=== PATIENT | male | born 1965 | race Caucasian/White ===

== ENCOUNTER 2022-01-24 06:40 | Emergency (ER) | payer SELFPAY ==
[~2022-01-24] VITALS: Ht 177.8 cm; Wt 79.4 kg
[2022-01-24] MEDS ORDERED: ROSU10TA2 PO (07:04)
--- NOTE | 2022-01-24 08:25 | NUR ---
patient seen by MD. Patient discharged to home in stable condition. Written and verbal after care instructions given. Patient verbalizes understanding of instructions. Stressed follow up or return to ER for worsening s/s.
== END 2022-01-24 08:26 | disposition home or self-care (01) ==
LOC: ER 06:50
DX: U07.1 COVID-19 (principal); E78.5 Hyperlipidemia, unspecified; R51.9 Headache, unspecified; Z88.8 Allergy status to other drugs, medicaments and biological substances
CPT/HCPCS: 99284; 71045; 87400; 36415; U0003; A4663